=== PATIENT | female | born 1945 | race Caucasian/White ===

== ENCOUNTER → 2016-06-21 | Outpatient (CLI) | payer OTHER | LOC: FIMAGING 13:00 | DX: Z12.31 Encounter for screening mammogram for malignant neoplasm of breast (principal) | CPT/HCPCS: G0202 ==

== ENCOUNTER → 2016-08-21 | Outpatient (CLI) | payer OTHER | LOC: FIMAGING 10:44 | PROVIDERS: ATTEND Nurse Practitioner Women's Health | DX: Z13.820 Encounter for screening for osteoporosis (principal); M81.0 Age-related osteoporosis without current pathological fracture ==

== ENCOUNTER → 2016-10-16 | Day surgery (SDC) | payer OTHER ==
[~2016-10-16] MED LIST: LIDOCAINE 1% 2 ML INJ ID PRN; LIDOCAINE 1% 2 ML INJ ONE; LR 1,000 ML IV ONE; MIDAZOLAM 2 MG/2 ML VIAL IVP ONE; NALOXONE HCL 0.4 MG/ML INJ IVP PRN; PROPOFOL 200 MG/20 ML VIAL ONE; fentaNYL 100 MCG/2 ML INJ IVP PRN
--- NOTE | 2016-10-16 07:09 | PDANEPAE ---
ANE History of Present Illness difficulty swallowing. s/p Anny fundoplication. ANE Past Medical History - Cardiovascular History Hx Hypertension: No Hx Arrhythmias: No Hx Chest Pain: No Hx Coronary Artery / Peripheral Vascular Disease: No Hx CHF / Valvular Disease: No Hx Palpitations: No - Pulmonary History Hx COPD: No Hx Asthma/Reactive Airway Disease: No Hx Recent Upper Respiratory Infection: No Hx Oxygen in Use at Home: No - Neurologic History Hx Cerebrovascular Accident: No Hx Seizures: No Hx Dementia: No - Endocrine History Hx Diabetes: No Hypothyroid: Yes Hyperthyroid: No - Renal History Hx Renal Disorders: Yes - Liver History Hx Hepatic Disorders: No - Neurological & Psychiatric Hx Hx Neurological and Psychiatric Disorders: No - Cancer History Hx Cancer: No - Congenital Disorder History Hx Congenital Disorders: No - GI History Hx Gastrointestinal Disorders: Yes - Chronic Pain History Chronic Pain: No ANE Review of Systems - Exercise capacity Exercise capacity: <4 METS METS (RN): 4 METS ANE Patient History - Allergies Allergies/Adverse Reactions: No Known Allergies Allergy (Verified 10/01/16 10:46) - Home Medications Home Medications: Levothyroxine [Synthroid 25 mcg (*)] 25 mcg PO DAILY06 10/29/13 [Last Taken ] Vitamin D3 10/01/16 [Last Taken Unknown] - NPO status NPO Since - Liquids (Date): 10/15/16 NPO Since - Liquids (Time): 20:00 NPO Since - Solids (Date): 10/15/16 NPO Since - Solids (Time): 20:00 - Anes Hx Anes Hx: no prior problems (stopped 30 years ago) - Smoking Hx Smoking Status: Former smoker - Family Anes Hx Family Hx Anesthesia Complications: none ANE Labs/Vital Signs - Vital Signs Blood Pressure: 131/90 Heart Rate: 63 Respiratory Rate: 16 O2 Sat (%): 96 Height: 165.1 cm Weight: 58.967 kg ANE Physical Exam - Airway Neck exam: FROM Mallampati Score: Class 1 Mouth exam: normal dental/mouth exam - Pulmonary Pulmonary: clear to auscultation - Cardiovascular Cardiovascular: regular rate and rhythym - ASA Status ASA Status: II ANE Anesthesia Plan Anesthesia Plan: GA with mask
--- NOTE | 2016-10-16 07:19 | PDGENHP ---
History & Physical Chief Complaint: dysphagia History of Present Illness: 71yr female with chronic dysphagia s/p remote siobhan fundoplication. for EGD with possible dilation today. Pertinent Past, Social, Family History: pmhx-hypothyroidism, gerd. psurg-open choly, lap siobhan. meds-levothyroxine, omeprazole. NKDA. Relevant Physical Exam: alert, approp. heart reg. lungs clear. abd nontender Cardiorespiratory Assessment: as above
--- NOTE | 2016-10-16 07:34 | POSTOPPROG ---
Post Op Note Date of Operation: 10/16/16 Surgeon: Abdullahi Cunha Anesthesiologist: Yfn Anesthesia: IV Sedation Pre-op Diagnosis: Dysphagia Post-op Diagnosis: Same Procedure: EGD with baloon dilation Inf/Abcess present in the surg proc area at time of surgery?: No EBL: Minimal Complications: no immediate
[2016-10-16 08:48] VITALS: RESP 16
--- NOTE | 2016-10-16 08:57 | POSTANESTH ---
Post Anesthetic Evaluation Cardiovascular Status: Normal, Stable Respiratory Status: Normal, Stable Level of Consciousness/Mental Status: Can Participate in Eval Pain Control: Adequate, Prn Tx Ordered Nausea/Vomiting Control: Adequate, Prn Tx Ordered Complications Possibly Related to Anesthesia: None Noted
[2016-10-16 09:11] VITALS: PULSE 56; TEMP 97.5; O2SAT 94
[2016-10-16 09:50] VITALS: BP 136/90
--- NOTE | 2016-10-16 10:11 | GOP ---
[f rep st] OPERATIVE REPORT DATE OF OPERATION: 10/16/2016 SURGEON: Abdullahi Cunha MD ANESTHESIA: MAC. ANESTHESIOLOGIST: Dr. Ledesma. PREOPERATIVE DIAGNOSIS: Dysphagia. POSTOPERATIVE DIAGNOSIS: Dysphagia. PROCEDURE PERFORMED: Upper endoscopy with biopsies and dilation. FINDINGS: INDICATIONS: A 71-year-old female, status post remote Anny fundoplication. She has had ongoing s ymptoms of dysphagia. She is undergoing an upper endoscopy with possible dilation at this time. Ri sks and benefits explained of bleeding, infection, bowel injury. All questions were answered. She desires to proceed. DESCRIPTION OF PROCEDURE: Patient is placed in left lateral decubitus position. The upper endoscop e was easily passed through the oropharynx down to the 3rd portion of the duodenum. The scope was s lowly withdrawn. There was evidence of mild duodenitis in the 1st portion. These portions were bio psied. The pylorus appeared normal with normal patency and peristalsis. Scope was withdrawn into t he stomach. There was mild gastric antral varices atelectatic type change. Portions of this were b iopsied for histopathology and for H pylori. The remaining stomach appeared completely normal. The scope was retroflexed showing a GE junction at 40 cm with an intact wrap. The scope was withdrawn back into the esophagus showing a normal-appearing Z-line and esophageal mucosa. A 15 mm TTS balloo n was passed into the stomach and inflated. This was held in place for approximately a minute acros s the GE junction showing a nice dilation beyond the wrap. There was no void noted upon balloon wit hdrawal. The scope was withdrawn uneventfully, and the patient taken to recovery awake in good cond ition. /[id number]/MODL
== END | disposition home or self-care (01) ==
LOC: FSGY 05:43
PROVIDERS: ATTEND Surgery
PROC: 0DB68ZX Excision of Stomach, Via Natural or Artificial Opening Endoscopic, Diagnostic (ICD-10-PCS; principal; 2016-10-16 07:30)
PROC: 0D748ZZ Dilation of Esophagogastric Junction, Via Natural or Artificial Opening Endoscopic (ICD-10-PCS; principal; 2016-10-16 07:30)
PROC: 0DB98ZX Excision of Duodenum, Via Natural or Artificial Opening Endoscopic, Diagnostic (ICD-10-PCS; principal; 2016-10-16 07:30)
DX: R13.10 Dysphagia, unspecified (principal); K21.9 Gastro-esophageal reflux disease without esophagitis; K29.70 Gastritis, unspecified, without bleeding; K29.80 Duodenitis without bleeding
CPT/HCPCS: 43239; 43249; C1726; J2250; J2704

== ENCOUNTER → 2017-09-02 | Outpatient (CLI) | payer OTHER | LOC: BMCIMAGING 08:47 | PROVIDERS: ATTEND Orthopaedic Surgery | DX: M25.551 Pain in right hip (principal) ==